=== PATIENT | female | born 1945 | race Caucasian/White ===

== ENCOUNTER 2018-04-02 10:18 | Outpatient (CLI) | payer MEDICARE ==
--- NOTE | 2018-04-02 12:51 | MMO ---
BILATERAL DIGITAL SCREENING MAMMOGRAMS: History: 72-year-old female presents for digital screening mammography. Comparison: 03-29-17, 16, 03-04-15, 02-28-14, 02-26-13 This study is interpreted with the assistance of computer aided detection. FINDINGS: Scattered fibroglandular densities are noted bilaterally. There are some typically benign calcificati ons in both breasts. No direct or indirect evidence of malignancy. Stable from prior studies. IMPRESSION: BIRADS category 2 - benign findings. Continue routine screening. POS: [facility]
== END 2018-04-02 10:19 | disposition home or self-care (01) ==
LOC: SCSMAMMO 10:18
PROVIDERS: ATTEND Internal Medicine
DX: Z12.31 Encounter for screening mammogram for malignant neoplasm of breast (principal)
CPT/HCPCS: 77067

== ENCOUNTER 2019-02-13 18:07 | Emergency (ER) | payer MEDICARE ==
[2019-02-13 19:04] LABS: Bilirubin Negative (Negative); Blood, Urine Trace (Negative); Clarity Clear (Clear); Glucose, Urine (Dipstick) Negative (Negative); Leukocyte Negative (Negative); Nitrite Negative (Negative); Protein, Urine (Dipstick) Negative (Neg-Trace); Urobilinogen 0.2 mg/dL (Less than 2)
[2019-02-13 19:14] LABS: Bacteria/HPF Rare-Few HPF (None Seen); RBC/HPF 0-3 HPF (0-3); WBC/HPF None Seen HPF (0-3)
[2019-02-13 19:32] LABS: #Eosinphils 0.2 thou/uL (0.0-0.7); #Lymphocytes 1.3 thou/uL (1.20-3.40); #Monocytes 0.5 thou/uL (0.11-0.59); #Neutrophils 4.9 thou/uL (1.40-6.50); %Basophils 0.7 % (0.0-1.0); %Monocytes 6.6 % (0.0-10.0); %Neutrophils 70.8 % (42.0-75.0); Hemoglobin 15.1 g/dL (12.0-16.0); Mean Corpuscular HGB CONC 34.5 g/dL (32.0-36.0); Mean Corpuscular Hemoglobin 30.7 pg (27.0-31.0); Mean Corpuscular Volume 88.8 fL (78.0-98.0); Mean Platelet Volume 10.5 fL (7.4-10.4); Platelet Count 175 thou/uL (130-400); RBC Distribution Width 12.4 % (11.5-14.5); Red Blood Cell (RBC) Count 4.92 mill/uL (4.20-5.40); White Blood Cell (WBC) Count 6.9 thou/uL (4.8-10.8)
[2019-02-13 19:44] LABS: ALT (SGPT) 56 U/L (8-55); AST (SGOT) 53 U/L (5-34); Albumin 3.9 g/dL (3.4-4.8); Alkaline Phosphatase 104 U/L (40-110); Anion Gap 15 mmol/L (10-20); BUN (Urea Nitrogen) 7 mg/dL (9.8-20.1); Bilirubin, Total 0.4 mg/dL (0.2-1.2); Calc. Creatinine Clearance 0 mL/min (70-130); Calcium 9.5 mg/dL (7.8-10.44); Carbon Dioxide 25 mmol/L (23-31); Chloride 108 mmol/L (98-107); Estimated GFR-MDRD 71; Glucose 115 mg/dL (83-110); Potassium 3.8 mmol/L (3.5-5.1); Protein, Total 6.9 g/dL (6.0-8.3); Sodium 144 mmol/L (136-145)
== END 2019-02-13 20:41 | disposition home or self-care (01) ==
LOC: SCSER 18:07
DX: N95.0 Postmenopausal bleeding (principal); Z79.899 Other long term (current) drug therapy
CPT/HCPCS: 36415; 51701; 80053; 81003; 81015; 85025; A4353

== ENCOUNTER 2019-03-14 08:52 | Outpatient (CLI) | payer MEDICARE ==
--- NOTE | 2019-03-14 09:48 | ULT ---
GALLBLADDER ULTRASOUND: HISTORY:Elevated LFTs. FINDINGS: The liver demonstrates homogeneously increased echotexture without focal mass or intrahepatic biliary ductal dilatation. A single mobile shadowing gallstone is noted without gallbladder wall thickening or pericholecystic f luid. The pancreas is not visualized due to overlying bowel gas. The common duct [id number] in diameter. The right kidney is normal. No free fluid is seen in the Osorio's pouch. IMPRESSION: 1. Fatty liver 2. Cholelithiasis
== END 2019-03-14 08:53 | disposition home or self-care (01) ==
LOC: SCSULT 08:52
PROVIDERS: ATTEND Internal Medicine
DX: R74.0 Nonspecific elevation of levels of transaminase and lactic acid dehydrogenase [LDH] (principal); K80.20 Calculus of gallbladder without cholecystitis without obstruction; K76.0 Fatty (change of) liver, not elsewhere classified
CPT/HCPCS: 76705

== ENCOUNTER 2019-04-25 06:29 | Outpatient (CLI) | payer MEDICARE ==
--- NOTE | 2019-04-26 17:56 | EKG ---
Test Reason : Blood Pressure : / mmHG Vent. Rate : 068 BPM Atrial Rate : 068 BPM P-R Int : 178 ms QRS Dur : 078 ms QT Int : 420 ms P-R-T Axes : 036 033 026 degrees QTc Int : 446 ms Normal sinus rhythm Cannot rule out Anterior infarct , age undetermined Abnormal ECG When compared with ECG of 27-FEB-2019 09:50, (Unconfirmed) Nonspecific T wave abnormality now evident in Anterior leads Confirmed by Lalo TORRE ([id number]) on 04/26/2019 5:56:05 PM Referred By: WANDY Confirmed By:Lalo TORRE
== END 2019-04-25 06:30 | disposition home or self-care (01) ==
LOC: LABBT 06:29
PROVIDERS: ATTEND Obstetrics & Gynecology
DX: Z01.818 Encounter for other preprocedural examination (principal); N95.0 Postmenopausal bleeding
CPT/HCPCS: 93005; 93010

== ENCOUNTER 2019-04-30 10:43 | Day surgery (SDC) | payer MEDICARE ==
[2019-04-25 10:52] VITALS: BMI 42.6
[2019-04-25 11:53] LABS: Hemoglobin 14.7 g/dL (12.0-16.0); Mean Corpuscular HGB CONC 33.1 g/dL (32.0-36.0); Mean Corpuscular Hemoglobin 30.4 pg (27.0-31.0); Mean Corpuscular Volume 91.7 fL (78.0-98.0); Mean Platelet Volume 9.4 fL (7.4-10.4); Platelet Count 186 thou/uL (130-400); Red Blood Cell (RBC) Count 4.84 mill/uL (4.20-5.40); White Blood Cell (WBC) Count 8.6 thou/uL (4.8-10.8)
[2019-04-30] MEDS ORDERED: Gabapentin 300 MG CAP ONE (13:31)
[2019-04-30] MEDS ORDERED: Famotidine/PF 20 mg/2ml Vial ONE (13:32)
== END 2019-04-30 16:28 | disposition home or self-care (01) ==
LOC: SDC 10:43
PROVIDERS: ATTEND Obstetrics & Gynecology
DX: N95.0 Postmenopausal bleeding (principal); Z79.899 Other long term (current) drug therapy; Z88.2 Allergy status to sulfonamides; Z53.9 Procedure and treatment not carried out, unspecified reason
CPT/HCPCS: 85027; 86850; 86900; 86901; J0131; S0028

== ENCOUNTER 2019-05-01 09:56 | Day surgery (SDC) | payer MEDICARE ==
[2019-05-01] MEDS ORDERED: Dexamethasone 20 MG/5 ML VIAL ONE (10:04)
[2019-05-01] MEDS ORDERED: PROPOFOL 200 MG/20 ML VIAL ONE (10:04)
[2019-05-01] MEDS ORDERED: Ondansetron PF 4 MG/2 ML Vial ONE (10:04)
[2019-05-01] MEDS ORDERED: Lidocaine 1% PF 5 ML VIAL ONE (10:04)
[2019-05-01] MEDS ORDERED: Famotidine/PF 20 mg/2ml Vial ONE (10:26)
[2019-05-01] MEDS ORDERED: Gabapentin 300 MG CAP ONE (10:26)
[2019-05-01] MEDS ORDERED: Fentanyl 100 MCG/2 ML VIAL ONE (12:22)
--- NOTE | 2019-05-03 12:02 | OP ---
DATE OF PROCEDURE: 05/01/2019 PREOPERATIVE DIAGNOSIS: Postmenopausal bleeding. POSTOPERATIVE DIAGNOSES: 1. Postmenopausal bleeding. 2. Proliferative polyp appearing endometrial tissue versus endometrial mass. PROCEDURES PERFORMED: Operative hysteroscopy with polypectomy versus excision of endometrial mass. COMPLICATIONS: None. ANESTHESIA: General. ESTIMATED BLOOD LOSS: Minimal. IV FLUIDS: 1000 mL. HYSTEROSCOPIC FLUID DEFICIT: 200 mL of normal saline. INDICATIONS FOR PROCEDURE: Ms. Mary Kay Hong is a 73-year-old female, who presented to clinic with complaints of postmenopausal bleeding. She underwent a vaginal ultrasound demonstrating endometrial stripe of approximately 10 mm. She then underwent an endometrial biopsy, which demonstrated atrophic endometrium. Due to the discrepancy between the ultrasound and the endometrial biopsy, a dilation and curettage was recommended under hysteroscopic guidance and the patient was amenable to the procedure. The patient did receive medical clearance preoperatively. DESCRIPTION OF PROCEDURE: The patient was brought to the operating room. She was placed under general anesthesia. The patient was placed in dorsal lithotomy position using Foreign stirrups. She was prepped and draped in a sterile fashion. An official time-out was performed. A single-sided speculum was placed in the vagina and the anterior aspect of the cervix was grasped with a single-tooth tenaculum. The cervix was sequentially dilated using Gregg dilators. The uterus was sounded to 7 cm. The TruClear hysteroscope was inserted into the endometrial canal. There was a polypoid appearing mass approximately 1-2 cm at the fundus of the uterus near the right aspect that was noted, was very soft to the touch; however, did not appear as a typical benign endometrial polyp. The remaining area of the endometrial canal appeared normal and atrophic. The hysteroscopic morcellator was then inserted and activated removing the polypoid mass type tissue and this was collected. The hysteroscope was then removed. A sharp dilation and curettage was then performed and this tissue was also collected and sent to pathology. The instruments were removed from the vagina. The tenaculum site was hemostatic. The patient was placed back in supine position. She was extubated without difficulty. All counts were correct x2. Job ID: [id number]
== END 2019-05-01 16:00 | disposition home or self-care (01) ==
LOC: SDC 09:56
PROVIDERS: ATTEND Obstetrics & Gynecology
PROC: 0UB98ZX Excision of Uterus, Via Natural or Artificial Opening Endoscopic, Diagnostic (ICD-10-PCS; principal; 2019-05-01)
PROC: 0UDB7ZX Extraction of Endometrium, Via Natural or Artificial Opening, Diagnostic (ICD-10-PCS; 2019-05-01)
DX: N84.0 Polyp of corpus uteri (principal); I10 Essential (primary) hypertension; E66.9 Obesity, unspecified; Z68.41 Body mass index [BMI] 40.0-44.9, adult; Z79.899 Other long term (current) drug therapy; Z88.2 Allergy status to sulfonamides
CPT/HCPCS: 88305; J0131; J0690; J1100; J2001; J2405; J2704; J3010; S0028

== ENCOUNTER 2022-09-21 10:53 | Outpatient (CLI) | payer MEDICARE ==
[2022-09-21 12:35] LABS: #Eosinphils 0.2 10x3/uL (0.0-0.5); #Monocytes 0.5 10x3/uL (0.0-1.1); #Neutrophils 4.6 10x3/uL (1.5-8.4); %Basophils 0.3 % (0.0-2.0); %Eosinophils 2.6 % (0.0-6.0); %Lymphocytes 19.1 % (18.0-47.0); %Monocytes 8.1 % (0.0-10.0); %Neutrophils 69.6 % (40.0-75.0); Hemoglobin 15.8 g/dL (12.0-15.5); Mean Corpuscular HGB CONC 33.9 g/dL (32.0-36.0); Mean Corpuscular Hemoglobin 30.7 pg (27.0-33.0); Mean Corpuscular Volume 90.5 fl (81.6-98.3); Mean Platelet Volume 12.1 fl (7.4-10.4); Platelet Count 143 10x3/uL (150-450); RBC Distribution Width 13.2 % (11.5-14.5); Red Blood Cell (RBC) Count 5.15 10x6/uL (3.90-5.03); White Blood Cell (WBC) Count 6.6 10x3/uL (3.5-10.5)
[2022-09-21 12:54] LABS: Prothrombin Time 10.9 sec (9.5-12.1)
[2022-09-21 12:56] LABS: Anion Gap 16 mmol/L (10-20); BUN (Urea Nitrogen) 8 mg/dL (9.8-20.1); Calc. Creatinine Clearance 0 mL/min (70-130); Calcium 9.2 mg/dL (7.8-10.44); Carbon Dioxide 22 mmol/L (23-31); Chloride 108 mmol/L (98-107); Estimated GFR 78; Glucose 125 mg/dL (83-110); Potassium 4.1 mmol/L (3.5-5.1); Sodium 142 mmol/L (136-145)
== END 2022-09-21 10:54 | disposition home or self-care (01) ==
LOC: LABBT 10:53
PROVIDERS: ATTEND Orthopaedic Surgery
DX: Z01.818 Encounter for other preprocedural examination (principal); M17.11 Unilateral primary osteoarthritis, right knee
CPT/HCPCS: 80048; 85025; 85610; 87081; 93005; 93010

== ENCOUNTER 2022-09-26 05:35 | Observation (INO) | payer MEDICARE ==
[2022-09-26] MEDS ORDERED: Bupivacaine PF 0.5% 30 ML VIAL ONE ×2 (06:29→06:44)
[2022-09-26] MEDS ORDERED: fentaNYL 50 mcg/mL 1 mL Vial ONE (06:43)
[2022-09-26] MEDS ORDERED: EPINEPHrine 1 MG/ML AMP ONE (06:44)
[2022-09-26] MEDS ORDERED: Midazolam HCl 2 mg/2 ml Vial ONE (06:45)
[2022-09-26] MEDS ORDERED: diphenhydrAMINE 25 MG CAP PO PRN (06:46)
[2022-09-26] MEDS ORDERED: fentaNYL 50 mcg/mL 1 mL Vial SLOW IVP PRN ×2 (06:46→07:54)
[2022-09-26] MEDS ORDERED: Ondansetron PF 4 MG/2 ML Vial IVP PRN (06:46)
[2022-09-26] MEDS ORDERED: HYDROcodone/Acetaminophen 10/325 mg Tablet PO PRN (06:46)
[2022-09-26] MEDS ORDERED: Promethazine HCl 25 MG/ML VIAL IM PRN ×2 (06:46→08:49)
[2022-09-26] MEDS ORDERED: Acetaminophen 325 MG TAB PO PRN (06:46)
[2022-09-26] MEDS ORDERED: Zolpidem Tartrate 5 MG TAB PO PRN (06:46)
[2022-09-26] MEDS ORDERED: ALPRAZolam 0.25 MG TAB PO PRN (06:48)
[2022-09-26] MEDS ORDERED: Vancomycin (BATCH) 1.5 GRAM/300 ML BAG ONE (06:49)
[2022-09-26] MEDS ORDERED: Sodium Chloride 0.9% 100 ML ONE ×2 (06:49→06:58)
[2022-09-26] MEDS ORDERED: Tranexamic Acid 1,000 MG/10 ML VIAL ONE (06:49)
[2022-09-26] MEDS ORDERED: Acetaminophen 500 MG TAB ONE (06:50)
[2022-09-26] MEDS ORDERED: PHENYLEPHRINE-NS 100 MCG/ML 10 ML SYRINGE ONE (06:53)
[2022-09-26] MEDS ORDERED: Ondansetron PF 4 MG/2 ML Vial ONE (06:53)
[2022-09-26] MEDS ORDERED: Dexamethasone 20 MG/5 ML VIAL ONE (06:53)
[2022-09-26] MEDS ORDERED: PROPOFOL 200 MG/20 ML VIAL ONE (06:53)
[2022-09-26] MEDS ORDERED: CEFAZOLIN 2 GM VIAL ONE (06:58)
[2022-09-26] MEDS ORDERED: Propofol 1,000 MG/100 ML VIAL IV ONE (07:00)
[2022-09-26] MEDS ORDERED: Lidocaine 2% 6 ML SYR ONE (07:07)
[2022-09-26] MEDS ORDERED: traMADol HCl 50 MG TAB PO PRN ×2 (08:00)
[2022-09-26] MEDS ORDERED: Ropivacaine 0.2% 550 ML 550 ML NERVE BLCK SCH (08:00)
[2022-09-26] MEDS ORDERED: Ondansetron HCl/PF 4 MG/2 ML Vial IVP PRN (08:49)
[2022-09-26] MEDS ORDERED: Non-Formulary Item 1 EACH (Multivitamin [Multi-Vitamin Daily] 1 TABLET Tablet) PO SCH (09:00)
[2022-09-26] MEDS: Ketorolac Tromethamine 30 MG/ML VIAL IVP SCH ×2 (12:22→18:47)
[2022-09-26] MEDS: HYDROcodone/Acetaminophen 10/325 mg Tablet PO PRN ×3 (12:23→21:36)
[2022-09-26] MEDS: Aspirin 81 mg Enteric Coated Tablet PO SCH ×2 (12:30→21:39)
[2022-09-26] MEDS: Sodium Chloride 0.9% 1,000 ML IV SCH ×2 (12:31→18:13)
[2022-09-26] MEDS ORDERED: Ketorolac Tromethamine 30 MG/ML VIAL IVP SCH (14:00)
[2022-09-26] MEDS: CEFAZOLIN 2 GM in Sodium Chloride 0.9% 100 ML IVPB SCH (14:34)
[2022-09-26 17:58] VITALS: BMI 43.6
[2022-09-26] MEDS ORDERED: Amitriptyline HCl 25 MG TAB PO SCH (21:00)
[2022-09-27] MEDS: CEFAZOLIN 2 GM in Sodium Chloride 0.9% 100 ML IVPB SCH (01:02)
[2022-09-27] MEDS: Ketorolac Tromethamine 30 MG/ML VIAL IVP SCH ×3 (01:02→11:57)
[2022-09-27] MEDS: Sodium Chloride 0.9% 1,000 ML IV SCH ×2 (04:35→13:36)
[2022-09-27 05:30] LABS: Mean Corpuscular HGB CONC 32.1 g/dL (32.0-36.0); Mean Corpuscular Volume 93.4 fl (78.0-98.0); Mean Platelet Volume 11.5 fL (7.4-10.4); Platelet Count 153 10x3/uL (130-400); RBC Distribution Width 13.5 % (11.5-14.5); Red Blood Cell (RBC) Count 4.67 mill/uL (4.20-5.40); White Blood Cell (WBC) Count 13.5 10x3/uL (4.8-10.8)
[2022-09-27] MEDS: Ferrous Gluconate 324 MG TAB PO SCH ×2 (06:35→16:23)
[2022-09-27] MEDS: Aspirin 81 mg Enteric Coated Tablet PO SCH (08:57)
[2022-09-27] MEDS ORDERED: Multivitamin W/ Minerals 1 TAB PO SCH (09:00)
[2022-09-27] MEDS ORDERED: Senokot S 8.6-50 MG TAB PO SCH (09:00)
[2022-09-27 12:37] VITALS: BP 142/83; TEMP 97.6
[2022-09-27] MEDS: HYDROcodone/Acetaminophen 10/325 mg Tablet PO PRN (13:44)
== END 2022-09-27 16:52 | disposition home or self-care (01) ==
LOC: SDC 05:35 → SJJU 10:55
PROVIDERS: ADMIT Orthopaedic Surgery; ATTEND Orthopaedic Surgery
PROC: 0SRC0J9 Replacement of Right Knee Joint with Synthetic Substitute, Cemented, Open Approach (ICD-10-PCS; principal; 2022-09-26)
DX: M17.11 Unilateral primary osteoarthritis, right knee (principal); I10 Essential (primary) hypertension; Z79.82 Long term (current) use of aspirin; Z79.899 Other long term (current) drug therapy; Z88.2 Allergy status to sulfonamides; Z96.652 Presence of left artificial knee joint
CPT/HCPCS: 20985; 27447; 73560; 85027; 96365; 96366; 96375; 96376 ×2; 97110 ×2; 97116 ×2; 97530 ×2; A4306; C1713; C1776; G0378 ×2; J3010; J3370; 36415; J0171; J1100; J1885; J2250; J2405; J2704; J2795; J3490; J7050; S0020

== ENCOUNTER 2023-07-12 02:17 | Observation (INO) | payer MEDICARE ==
[2023-07-12 02:40] LABS: #Eosinphils 0.2 thou/uL (0.0-0.7); #Monocytes 0.4 thou/uL (0.11-0.59); #Neutrophils 4.2 thou/uL (1.40-6.50); %Basophils 0.3 % (0.0-1.0); %Eosinophils 2.7 % (0.0-10.0); %Lymphocytes 20.5 % (21.0-51.0); Hematocrit 45.5 % (36.0-47.0); Hemoglobin 15.7 g/dL (12.0-16.0); Mean Corpuscular HGB CONC 34.5 g/dL (32.0-36.0); Mean Corpuscular Hemoglobin 31.5 pg (27.0-31.0); Mean Corpuscular Volume 91.4 fl (78.0-98.0); Mean Platelet Volume 11.4 fL (7.4-10.4); Platelet Count 121 10x3/uL (130-400); RBC Distribution Width 13.2 % (11.5-14.5); Red Blood Cell (RBC) Count 4.98 mill/uL (4.20-5.40)
[2023-07-12 03:04] LABS: ALT (SGPT) 44 U/L (8-55); AST (SGOT) 53 U/L (5-34); Albumin 4.1 g/dL (3.4-4.8); Alkaline Phosphatase 142 U/L (40-110); Anion Gap 11 mmol/L (10-20); BUN (Urea Nitrogen) 11 mg/dL (9.8-20.1); Bilirubin, Total 0.4 mg/dL (0.2-1.2); Calc. Creatinine Clearance 0 mL/min (70-130); Calcium 9.6 mg/dL (7.8-10.44); Carbon Dioxide 27 mmol/L (23-31); Chloride 105 mmol/L (98-107); Estimated GFR 67; Globulin 3.3 g/dL (2.4-3.5); Glucose 227 mg/dL (83-110); Lipase 27 U/L (8-78); Potassium 3.8 mmol/L (3.5-5.1); Protein, Total 7.4 g/dL (5.8-8.1); Sodium 139 mmol/L (136-145)
[2023-07-12 03:06] LABS: Troponin I Less than 0.010 ng/mL (< 0.028)
[2023-07-12] MEDS ORDERED: Nitroglycerin 2% Ointment 1 INCH/1 GM Packet ONE (04:40)
[2023-07-12 08:10] LABS: Troponin I 0.021 ng/mL (< 0.028)
[2023-07-12] MEDS ORDERED: Ondansetron ODT 4 MG TAB PO PRN (08:44)
[2023-07-12] MEDS ORDERED: Acetaminophen 650 MG Suppository PR PRN (08:44)
[2023-07-12] MEDS ORDERED: Ondansetron PF 4 MG/2 ML Vial IVP PRN (08:44)
[2023-07-12] MEDS: Aspirin Chewable 81 MG TAB PO SCH (09:05)
[2023-07-12] MEDS: Lidocaine 2% Viscous 10 mL, Alum & Magn 30 mL SSW SCH (09:05)
[2023-07-12] MEDS ORDERED: LORazepam 2 MG/ML SYR.(CARPUJECT) ONE (10:49)
[2023-07-12] MEDS: LORazepam 2 MG/ML SYR.(CARPUJECT) IVP SCH (10:53)
[2023-07-12] MEDS ORDERED: Adenosine 90 mg (30 mL) VIAL ONE (11:57)
[2023-07-12 16:28] VITALS: BMI 45.0
[2023-07-12 21:24] LABS: Troponin I Less than 0.010 ng/mL (< 0.028)
[2023-07-13 03:33] LABS: #Eosinphils 0.1 thou/uL (0.0-0.7); #Monocytes 0.7 thou/uL (0.11-0.59); #Neutrophils 4.9 thou/uL (1.40-6.50); %Basophils 0.3 % (0.0-1.0); %Eosinophils 1.9 % (0.0-10.0); %Lymphocytes 20.2 % (21.0-51.0); %Neutrophils 68.3 % (42.0-75.0); Hemoglobin 14.9 g/dL (12.0-16.0); Mean Corpuscular HGB CONC 33.9 g/dL (32.0-36.0); Mean Corpuscular Hemoglobin 31.5 pg (27.0-31.0); Mean Platelet Volume 11.3 fL (7.4-10.4); Platelet Count 121 10x3/uL (130-400); RBC Distribution Width 13.7 % (11.5-14.5); Red Blood Cell (RBC) Count 4.73 mill/uL (4.20-5.40); White Blood Cell (WBC) Count 7.2 10x3/uL (4.8-10.8)
[2023-07-13 03:56] LABS: Cardiac Risk 3.4 (Less than 4.5)
[2023-07-13 04:46] LABS: Anion Gap 14 mmol/L (10-20); BUN (Urea Nitrogen) 11 mg/dL (9.8-20.1); Calc. Creatinine Clearance 101 mL/min (70-130); Calcium 9.4 mg/dL (7.8-10.44); Carbon Dioxide 24 mmol/L (23-31); Chloride 106 mmol/L (98-107); Estimated GFR 75; Glucose 143 mg/dL (83-110); Potassium 4.7 mmol/L (3.5-5.1); Sodium 139 mmol/L (136-145)
[2023-07-13] MEDS: Lorazepam 0.5 MG TAB PO PRN (08:25)
[2023-07-13 12:42] VITALS: BP 164/98
[2023-07-13] MEDS: Acetaminophen 325 MG TAB PO PRN (12:57)
[2023-07-13] MEDS: Metoprolol Tartrate 50 MG TAB PO SCH (12:57)
[2023-07-13 17:06] VITALS: TEMP 98.3
== END 2023-07-13 18:35 | disposition home or self-care (01) ==
LOC: ERS 02:17 → ERHOLD 07:32 → 2SW 16:11
PROVIDERS: ADMIT Internal Medicine; ATTEND Family Medicine
DX: R07.89 Other chest pain (principal); D69.6 Thrombocytopenia, unspecified; I10 Essential (primary) hypertension; R16.0 Hepatomegaly, not elsewhere classified; K76.0 Fatty (change of) liver, not elsewhere classified; K80.20 Calculus of gallbladder without cholecystitis without obstruction; I51.89 Other ill-defined heart diseases; K21.9 Gastro-esophageal reflux disease without esophagitis; F41.9 Anxiety disorder, unspecified; Z79.899 Other long term (current) drug therapy; Z79.82 Long term (current) use of aspirin; Z88.2 Allergy status to sulfonamides; Z96.659 Presence of unspecified artificial knee joint
CPT/HCPCS: 71045; 76705; 78452; 80048; 80053; 80061; 83690; 83880; 84484 ×2; 85025 ×2; 93005; 93017; 93306; 96374; 99285; A9502; G0378 ×3; J2060; 36415; J0153

== ENCOUNTER 2024-01-26 11:02 | Inpatient (IN) | payer MEDICARE ==
[2024-01-26] MEDS ORDERED: Aspirin Chewable 81 MG TAB ONE (11:30)
[2024-01-26] MEDS ORDERED: Nitroglycerin 2% Ointment 1 INCH/1 GM Packet ONE (11:50)
[2024-01-26] MEDS ORDERED: Nitroglycerin 0.4 MG TAB 1 EACH ONE (11:51)
[2024-01-26 12:13] LABS: #Basophils Less than 0.03 10x3/uL (0.0-0.2); %Basophils 0.2 % (0.0-1.0); %Eosinophils 2.2 % (0.0-10.0); %Lymphocytes 18.2 % (21.0-51.0); %Neutrophils 71.1 % (42.0-75.0); Hematocrit 43.3 % (36.0-47.0); Hemoglobin 14.8 g/dL (12.0-16.0); Mean Corpuscular HGB CONC 34.2 g/dL (32.0-36.0); Mean Corpuscular Hemoglobin 31.1 pg (27.0-31.0); Mean Platelet Volume 11.5 fL (7.4-10.4); Platelet Count 103 10x3/uL (130-400); RBC Distribution Width 13.7 % (11.5-14.5); Red Blood Cell (RBC) Count 4.76 mill/uL (4.20-5.40)
[2024-01-26 12:23] LABS: ALT (SGPT) 33 U/L (8-55); AST (SGOT) 45 U/L (5-34); Albumin 3.5 g/dL (3.4-4.8); Alkaline Phosphatase 104 U/L (40-110); Anion Gap 13 mmol/L (10-20); BUN (Urea Nitrogen) 10 mg/dL (9.8-20.1); Bilirubin, Total 0.6 mg/dL (0.2-1.2); Calc. Creatinine Clearance 0 mL/min (70-130); Carbon Dioxide 19 mmol/L (23-31); Chloride 114 mmol/L (98-107); Estimated GFR 83; Globulin 3.5 g/dL (2.4-3.5); Glucose 137 mg/dL (83-110); Potassium 4.1 mmol/L (3.5-5.1); Sodium 142 mmol/L (136-145)
[2024-01-26] MEDS ORDERED: Ondansetron PF 4 MG/2 ML Vial IVP PRN (13:07)
[2024-01-26] MEDS ORDERED: Nitroglycerin 0.4 MG TAB (25 Tab Bottle) SL PRN (13:11)
[2024-01-26] MEDS ORDERED: Heparin 5,000 UNITS/ML VIAL ONE (14:32)
[2024-01-26] MEDS: Heparin 5,000 UNITS/ML VIAL SC SCH (14:37)
[2024-01-26 17:56] LABS: Troponin I 0.013 ng/mL (< 0.028)
[2024-01-26] MEDS: Amitriptyline HCl 25 MG TAB PO SCH (21:18)
[2024-01-26] MEDS: Metoprolol Tartrate 50 MG TAB PO SCH (21:19)
[2024-01-26] MEDS: Acetaminophen 325 MG TAB PO PRN (21:21)
[2024-01-26 21:47] VITALS: BMI 45.1
[2024-01-27 05:08] LABS: Anion Gap 12 mmol/L (10-20); BUN (Urea Nitrogen) 10 mg/dL (9.8-20.1); Calc. Creatinine Clearance 111 mL/min (70-130); Calcium 8.7 mg/dL (7.8-10.44); Carbon Dioxide 22 mmol/L (23-31); Chloride 110 mmol/L (98-107); Estimated GFR 82; Glucose 136 mg/dL (83-110); Potassium 4.4 mmol/L (3.5-5.1); Sodium 140 mmol/L (136-145)
[2024-01-27 05:46] LABS: #Basophils Less than 0.03 10x3/uL (0.0-0.2); %Basophils 0.2 % (0.0-1.0); %Eosinophils 1.7 % (0.0-10.0); %Lymphocytes 21.6 % (21.0-51.0); %Monocytes 8.5 % (0.0-10.0); %Neutrophils 67.2 % (42.0-75.0); Hematocrit 40.7 % (36.0-47.0); Hemoglobin 13.9 g/dL (12.0-16.0); Mean Corpuscular HGB CONC 33.7 g/dL (32.0-36.0); Mean Corpuscular Hemoglobin 30.9 pg (27.0-31.0); Mean Corpuscular Volume 91.6 fL (78.0-98.0); Mean Platelet Volume 11.2 fL (7.4-10.4); Platelet Count 101 10x3/uL (130-400); Red Blood Cell (RBC) Count 4.53 mill/uL (4.20-5.40)
[2024-01-27] MEDS: Pantoprazole DR 40 MG TAB PO SCH ×2 (09:37→20:47)
[2024-01-27] MEDS: Aspirin 81 mg Enteric Coated Tablet PO SCH (09:37)
[2024-01-27 13:19] LABS: Platelet Adequacy Comment Platelets Decreased
[2024-01-27] MEDS: Folic Acid 1 MG TAB PO SCH (20:47)
[2024-01-28 04:52] LABS: #Basophils Less than 0.03 10x3/uL (0.0-0.2); %Basophils 0.2 % (0.0-1.0); %Eosinophils 2.3 % (0.0-10.0); %Lymphocytes 22.3 % (21.0-51.0); %Monocytes 9.9 % (0.0-10.0); %Neutrophils 64.6 % (42.0-75.0); Hematocrit 39.4 % (36.0-47.0); Hemoglobin 13.4 g/dL (12.0-16.0); Mean Corpuscular Hemoglobin 31.7 pg (27.0-31.0); Mean Corpuscular Volume 93.1 fL (78.0-98.0); Mean Platelet Volume 11.1 fL (7.4-10.4); Platelet Count 94 10x3/uL (130-400); RBC Distribution Width 13.8 % (11.5-14.5); Red Blood Cell (RBC) Count 4.23 mill/uL (4.20-5.40)
[2024-01-28 05:22] LABS: ALT (SGPT) 27 U/L (8-55); AST (SGOT) 34 U/L (5-34); Albumin 3.1 g/dL (3.4-4.8); Alkaline Phosphatase 84 U/L (40-110); Anion Gap 13 mmol/L (10-20); BUN (Urea Nitrogen) 9 mg/dL (9.8-20.1); Bilirubin, Total 0.7 mg/dL (0.2-1.2); Calc. Creatinine Clearance 120 mL/min (70-130); Calcium 8.4 mg/dL (7.8-10.44); Carbon Dioxide 22 mmol/L (23-31); Chloride 108 mmol/L (98-107); Estimated GFR 88; Glucose 152 mg/dL (83-110); Protein, Total 6.1 g/dL (5.8-8.1); Sodium 139 mmol/L (136-145)
[2024-01-28] MEDS: Multivit, Therapeutic 1 TAB PO SCH (08:58)
[2024-01-28] MEDS ORDERED: ALPRAZolam 0.25 MG TAB PO PRN (11:58)
[2024-01-28] MEDS ORDERED: Communication Order-Pharmacy FS SCH (18:30)
[2024-01-29 04:34] LABS: Hemoglobin 14.2 g/dL (12.0-16.0); Platelet Count 105 10x3/uL (130-400)
[2024-01-29 05:05] LABS: Anion Gap 16 mmol/L (10-20); BUN (Urea Nitrogen) 10 mg/dL (9.8-20.1); Calc. Creatinine Clearance 99 mL/min (70-130); Calcium 8.9 mg/dL (7.8-10.44); Carbon Dioxide 22 mmol/L (23-31); Chloride 107 mmol/L (98-107); Estimated GFR 72; Glucose 140 mg/dL (83-110); Potassium 3.8 mmol/L (3.5-5.1); Sodium 141 mmol/L (136-145)
[2024-01-29] MEDS: Sodium Chloride 0.9% 1,000 ML IV SCH (05:32)
[2024-01-29] MEDS ORDERED: Midazolam HCl 2 mg/2 ml Vial ONE (09:18)
[2024-01-29] MEDS ORDERED: Heparin 10,000 UNITS/ 10 ML VIAL ONE (09:18)
[2024-01-29] MEDS ORDERED: fentaNYL 50 mcg/mL 1 mL Vial ONE (09:18)
[2024-01-29] MEDS ORDERED: Verapamil 5 MG/2 ML VIAL ONE (09:18)
[2024-01-29] MEDS ORDERED: Nitroglycerin 50 MG/250 ML BOT 250 ML ONE (09:19)
[2024-01-29] MEDS ORDERED: Iopamidol 370 76% 100 ML VIAL ONE (09:25)
[2024-01-29] MEDS ORDERED: Acetaminophen/Codeine 30-300mg Tablet PO PRN (10:41)
[2024-01-29] MEDS ORDERED: Sodium Chloride 0.9% 200 ML IV PRN (10:41)
[2024-01-29] MEDS: Sodium Chloride 0.9% 500 ML IV SCH (10:45)
[2024-01-29 16:24] VITALS: BP 140/73; TEMP 98.1
== END 2024-01-29 18:25 | disposition home or self-care (01) | DRG 287 ==
LOC: ERS 11:02 → ERHOLD 13:14 → 2NO 21:06 → OBSVTOIN 01-28 11:57
PROVIDERS: ADMIT Internal Medicine; ATTEND Family Medicine
PROC: 4A023N7 Measurement of Cardiac Sampling and Pressure, Left Heart, Percutaneous Approach (ICD-10-PCS; principal; 2024-01-29)
PROC: B2111ZZ Fluoroscopy of Multiple Coronary Arteries using Low Osmolar Contrast (ICD-10-PCS; 2024-01-29)
PROC: B2151ZZ Fluoroscopy of Left Heart using Low Osmolar Contrast (ICD-10-PCS; 2024-01-29)
DX: R07.89 Other chest pain (principal); I50.32 Chronic diastolic (congestive) heart failure; Z68.42 Body mass index [BMI] 45.0-49.9, adult; F41.9 Anxiety disorder, unspecified; K21.9 Gastro-esophageal reflux disease without esophagitis; I11.0 Hypertensive heart disease with heart failure; D69.6 Thrombocytopenia, unspecified; E66.01 Morbid (severe) obesity due to excess calories; I16.0 Hypertensive urgency; K80.20 Calculus of gallbladder without cholecystitis without obstruction; K76.0 Fatty (change of) liver, not elsewhere classified; Z88.2 Allergy status to sulfonamides; Z79.899 Other long term (current) drug therapy; Z82.49 Family history of ischemic heart disease and other diseases of the circulatory system
CPT/HCPCS: 36415; 71045; 76705; 80048; 80053; 83880; 84484; 85014; 85018; 85025; 85049; 93005; 93458; 96372; 99152; 99153; C1769; C1894; G0378; J1644; J2250; J3010; J7030; Q9967